=== PATIENT | male | born 1975 | race Caucasian/White ===

== ENCOUNTER 2018-04-12 09:57 | Emergency (ER) | payer SELFPAY ==
[2018-04-12 10:09] VITALS: BP 137/72; PULSE 75; RESP 17; TEMP 98.1; O2SAT 99
[2018-04-12 11:37] LABS: BACTERIA, URINE OCC /hpf; BILIRUBIN, URINE NEG (NEG); BLOOD, URINE SMALL (NEG); GLUCOSE,URINE NEG (NEG); KETONE, URINE NEG (NEG); MUCUS URINE FEW /lpf (OCC); NITRITE,URINE NEG (NEG); URINE COLOR YELLOW (YELLW/STRAW); URINE LEUKOCYTE ESTERASE NEG (NEG)
[2018-04-12 11:58] VITALS: BP 143/86; PULSE 57; RESP 18; O2SAT 99
--- NOTE | 2018-04-12 12:03 | PD ---
HPI Chief Complaint: Complaint Time Seen by Provider: 11:02 Travel History International Travel<30 days: No Contact w/Intl Traveler<30days: No Traveled to known affect area: No History of Present Illness HPI 42-year-old male presents the ED for evaluation of 3 day history of penile pain and dark colored urine. Patient states the pain is rated 6/10, constant, worsened by pressing on the bladder. Symptoms onset gradually. No alleviating factors reported. He denies fever, chills, nausea, vomiting, penile discharge, testicular pain. Denies urethral trauma. Denies penile trauma. He denies risk of STD, states last unprotected sex was "a long time ago." Endorses distant history of kidney stones, states these symptoms are not similar. No treatment attempted at home. PFSH Past Medical History Medical History: Denies Significant Hx Past Surgical History Other Surgery: Yes (HEMMOROIDS REMOVED ) Social History Alcohol Use: No Tobacco Use: Yes Substance Use: Yes (MARIJUANA) Allergies-Medications (Allergen,Severity, Reaction): Coded Allergies: No Known Allergies (Unverified , 04/12/18) Reported Meds & Prescriptions Reported Meds & Active Scripts Active No Active Prescriptions or Reported Medications Review of Systems Except as stated in HPI: all other systems reviewed are Neg Physical Exam Narrative GENERAL: Well-nourished, well-developed nontoxic appearing white male in NAD. SKIN: Focused skin assessment warm/dry. HEAD: Normocephalic. EYES: No scleral icterus. No injection or drainage. NECK: Supple, trachea midline. No JVD or lymphadenopathy. CARDIOVASCULAR: Regular rate and rhythm without murmurs, gallops, or rubs. RESPIRATORY: Breath sounds equal bilaterally. No accessory muscle use. GASTROINTESTINAL: Abdomen soft, non-tender, nondistended. Active bowel sounds. GENITOURINARY: Circumcised. Testes descended bilaterally without evidence of rotation. No lesions or erythema. No urethral discharge. No tenderness to urethral palpation. MUSCULOSKELETAL: No cyanosis, or edema. BACK: Nontender without obvious deformity. No CVA tenderness. Data Data Last Documented VS Vital Signs Date Time Temp Pulse Resp B/P (MAP) Pulse Ox O2 Delivery O2 Flow Rate FiO2 04/12/18 13:04 04/12/18 11:58 57 18 99 Room Air 04/12/18 10:09 98.1 Orders Orders Urinalysis - C+S If Indicated (6/14/18 11:03) Gc And Chlamydia Pcr (04/12/18 11:03) Azithromycin Powd Pack (Zithromax Powd P (04/12/18 12:30) Ceftriaxone Inj (Rocephin Inj) (04/12/18 12:30) Lidocaine 1% Inj (50 Ml) (Xylocaine 1% I (04/12/18 12:30) Ed Discharge Order (04/12/18 12:23) Labs Laboratory Tests Test 04/12/18 11:13 Urine Color YELLOW Urine Turbidity CLEAR Urine pH 6.0 Urine Specific [place] 1.012 Urine Protein NEG mg/dL Urine Glucose (UA) NEG mg/dL Urine Ketones NEG mg/dL Urine Occult Blood SMALL Urine Nitrite NEG Urine Bilirubin NEG Urine Urobilinogen LESS THAN 2.0 MG/DL Urine Leukocyte Esterase NEG Urine RBC 10 /hpf Urine WBC 2 /hpf Urine Bacteria OCC /hpf Urine Mucus FEW /lpf Microscopic Urinalysis Comment CULT NOT INDICATED Chlamydia trachomatis DNA (PCR) NOT DETECTED Neisseria gonorrhoeae DNA (PCR) NOT DETECTED MDM Medical Decision Making Medical Screen Exam Complete: Yes Emergency Medical Condition: Yes Differential Diagnosis urethritis versus UTI versus bladder stone versus other Narrative Course 42-year-old male presents the ED for evaluation of 3 day history of penile pain and dark colored urine. He denies risk of STD, states last unprotected sex was "a long time ago." Endorses distant history of kidney stones, states these symptoms are not similar. Patient is afebrile on presentation. Exam was performed in the presence of the nurse. Abdominal exam unremarkable. Male exam unremarkable. No culture indicated of the UA. I discussed the possible causes of urethritis with the patient. He agreed to empiric treatment for chlamydia and gonorrhea. He is instructed to notify all sexual partners of symptoms, follow-up with the health department for test of cure. The patient is instructed to return to the ED or follow with the urologist if symptoms fail to resolve. He indicated understanding of the instructions and is agreeable to the care plan. The patient is stable and discharged home. Diagnosis Primary Impression: Urethritis Referrals: Primary Care Physician Urologist Additional Instructions: Use condoms for safer sex practice. Notify all partners of symptoms. Abstain from sex until test of cure is performed at the health department in 1 week. Follow-up with the health department in 1 week for full battery of STD testing and test of cure. Return to the ED for worsening symptoms or any urgent or emergent medical condition. Scripts No Active Prescriptions or Reported Meds Disposition: 01 DISCHARGE HOME Condition: Charisma Johnson Apr 12, 2018 12:02
[2018-04-12] MEDS ORDERED: AZITHROMYCIN PWD FOR SUSP 1 GM PACKET PO ONE (12:30)
[2018-04-12] MEDS ORDERED: cefTRIAXone 250 MG VIAL IM ONE (12:30)
[2018-04-12] MEDS ORDERED: LIDOCAINE HCL 1% 50 ML VIAL XX ONE (12:30)
== END 2018-04-12 13:05 | disposition home or self-care (01) ==
LOC: NEPC 09:57
DX: N34.2 Other urethritis (principal); Z87.442 Personal history of urinary calculi; Z72.0 Tobacco use
CPT/HCPCS: 81001; 87491; 87591; 96372; 99283; J0696